=== PATIENT | male | born 1985 | race Caucasian/White ===

== ENCOUNTER 2016-11-07 12:05 | Emergency (ER) | payer SELFPAY ==
[2016-11-07 12:37] VITALS: BP 128/76
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
--- NOTE | 2016-11-07 13:44 | CR ---
Left shoulder: Three views of the left shoulder were obtained. Comparison: No previous study. Glenohumeral joint and acromioclavicular joint appear unremarkable. No fracture, dislocation or other bony abnormality is seen. Impression: 1. No abnormality is identified on left shoulder exam. Diagnostic code #1
--- NOTE | 2016-11-07 13:44 | CR ---
Chest and right ribs: Frontal view of the chest was obtained as well as 3 views of the right ribs. Comparison: No previous chest x-ray. Heart size and mediastinum are normal. Lungs are clear. No discrete fracture or other right sided rib abnormality is seen. Impression: 1. No discrete right sided rib abnormality is appreciated. Nothing acute is seen on accompanying chest x-ray. Diagnostic code #1
== END 2016-11-07 13:56 | disposition home or self-care (01) ==
LOC: JD.ED 12:05
DX: S49.91XA Unspecified injury of right shoulder and upper arm, initial encounter (principal); E66.9 Obesity, unspecified; Z90.49 Acquired absence of other specified parts of digestive tract; Z88.1 Allergy status to other antibiotic agents; V86.59XA Driver of other special all-terrain or other off-road motor vehicle injured in nontraffic accident, initial encounter
CPT/HCPCS: 71101-26-RT; 71101-RT; 73030-26-LT; 73030-LT; 99283

== ENCOUNTER 2017-12-24 11:42 | Emergency (ER) | payer SELFPAY ==
[2017-12-24 11:52] VITALS: BP 114/63
[2017-12-24] MEDS ORDERED: Lidocaine 1% with EPINEPHrine 1:100,000 20 ML MDV INJECT ONE (12:16)
[2017-12-24] MEDS ORDERED: Doxycycline 100 MG Cap PO ONE (12:17)
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
== END 2017-12-24 13:49 | disposition home or self-care (01) ==
LOC: JD.ED 11:42
DX: S00.03XA Contusion of scalp, initial encounter (principal); L72.3 Sebaceous cyst; F07.81 Postconcussional syndrome; W22.8XXA Striking against or struck by other objects, initial encounter
CPT/HCPCS: 10060; 99283; A9270

== ENCOUNTER 2021-06-03 09:26 | Emergency (ER) | payer SELFPAY ==
[2021-06-03 09:37] VITALS: BP 128/80; PULSE 73
[2021-06-03] MEDS ORDERED: Orphenadrine 100 MG Tab.ER PO STA (10:19)
[2021-06-03] MEDS ORDERED: Ketorolac 60 MG/2 ML SDV IM ONE (10:19)
--- NOTE | 2021-06-03 11:04 | CR ---
Thoracic spine: Lateral and AP views of the thoracic spine were obtained. Comparison: No prior thoracic spine imaging is available. Mild disc space narrowing is scattered throughout the thoracic spine. Mild scattered endplate osteophytes are also noted. Pedicles appear intact. No subluxation or acute fracture is seen. Impression: 1. Disc space narrowing with mild endplate osteophytes are scattered throughout the thoracic spine. Diagnostic code #2
--- NOTE | 2021-06-03 11:04 | CR ---
Cervical spine: Lateral and coned-down lateral views were obtained, AP and odontoid views were also obtained of the cervical spine. Comparison: No prior cervical spine imaging is available. Vertebral body heights and disc spaces are maintained. Prevertebral soft tissues are normal. No fracture or subluxation is seen. Impression: 1. Nothing acute is seen on 3-view cervical spine study. Diagnostic code #1
--- NOTE | 2021-06-03 11:18 | EDM.PDOC ---
ED HPI GENERAL MEDICAL PROBLEM - General Chief Complaint: Back Pain or Injury Stated Complaint: HURT BACK Time Seen by Provider: 06/03/21 09:35 Source of Information: Reports: Patient History Limitations: Reports: No Limitations - History of Present Illness INITIAL COMMENTS - FREE TEXT/NARRATIVE: 36-year-old male presents the emergency department with complaints of gradually worsening right shoulder pain that started approximately 1 week ago. He has no recent injury or trauma to the area. States he has seen his chiropractor twice this week without any relief. He states that he has been taking Tylenol, ibuprofen, using heat and a tens unit. States he is otherwise healthy. He denies any numbness or tingling to his extremities. He denies any shooting pain or radiating pain to his extremities. Right Posterior Shoulder Pain Score (Numeric/FACES): 8 - Related Data Allergies Allergy/AdvReac Type Severity Reaction Status Date / Time amoxicillin Allergy Itching Verified 06/03/21 09:37 Home Meds: Home Meds Omeprazole 20 mg PO DAILY 06/03/21 [History] Orphenadrine [Norflex] 100 mg PO BID PRN #10 tab 06/03/21 [Rx] Past Medical History - Past Health History Medical/Surgical History: Denies Medical/Surgical History Cardiovascular History: Reports: None Respiratory History: Reports: None Gastrointestinal History: Reports: GERD Genitourinary History: Reports: Renal Calculus Musculoskeletal History: Reports: Arthritis Neurological History: Reports: None Endocrine/Metabolic History: Reports: Obesity/BMI 30+ - Past Surgical History GI Surgical History: Reports: Appendectomy Musculoskeletal Surgical History: Reports: Other (See Below) Other Musculoskeletal Surgeries/Procedures:: hand surgery on rt hand - History Comment History Comment: ibuprofen prn Social & Family History - Family History Family Medical History: No Pertinent Family History - Tobacco Use Tobacco Use Status *Q: Never Tobacco User Second Hand Smoke Exposure: No - Caffeine Use Caffeine Use: Reports: Coffee - Recreational Drug Use Recreational Drug Use: No ED ROS GENERAL - Review of Systems Review Of Systems: Comprehensive ROS is negative, except as noted in HPI. ED EXAM, UPPER BACK/NECK PAIN - Physical Exam Exam: See Below Exam Limited By: No Limitations General Appearance: Alert, WD/WN, Mild Distress Ears Exam: Normal External Exam, Hearing Grossly Normal Nose Exam: Normal Inspection Throat/Mouth Exam: Normal Inspection, Normal Lips, Normal Voice, No Airway Compromise Head Exam: Atraumatic, Normocephalic Neck Exam: Non-Tender, Full Range of Motion, Normal Alignment, Normal Inspection, Paraspinous Muscle Tender (Right lower cervical area) Cardiovascular/Respiratory: Regular Rate, Rhythm, Normal Peripheral Pulses, No Respiratory Distress GI/Abdominal: Normal Bowel Sounds, Soft, No Distention (Male) Exam: Deferred Rectal (Males) Exam: Deferred Back Exam: Normal Inspection, Paraspinal Tenderness (Right lower cervical and upper thoracic area as well as right scapular area) Extremities: Normal Inspection, Normal Range of Motion, Non-Tender, No Pedal Edema, Normal Capillary Refill Neurologic: No Motor/Sensory Deficits, Alert, Normal Mood/Affect, Oriented x 3 Psychiatric: Normal Affect, Normal Mood Skin Exam: Normal Color, Warm/Dry Lymphatic: No Adenopathy Course - Vital Signs Text/Narrative:: Physical exam reveals overweight 36-year-old male. Patient does appear to be in some distress due to discomfort. Does need assistance sitting up at the bedside. Do not appreciate any spinal tenderness however he has significant amount of paraspinal tenderness noted on the right side in the lower cervical and upper thoracic spinal area as well as into the scapula. Increased pain noted when raising her right arm laterally as well as across his body. Also notes pain when turning his head from side to side. Will obtain an x-ray of the cervical and thoracic spine as well as medicate the patient with a Norflex and Toradol IM. Last Recorded V/S: Last Vital Signs Temp 97.6 F 06/03/21 09:32 Pulse 73 06/03/21 09:32 Resp 16 06/03/21 09:32 BP 128/80 06/03/21 09:32 Pulse Ox 96 06/03/21 09:32 - Orders/Labs/Meds Meds: Medications Discontinued Medications Generic Name Dose Route Start Last Admin Trade Name Freq PRN Reason Stop Dose Admin Ketorolac Tromethamine 60 mg 06/03/21 10:19 06/03/21 10:26 Ketorolac 60 Mg/2 Ml Sdv IM 06/03/21 10:20 60 mg ONETIME ONE Administration Orphenadrine Citrate 100 mg 06/03/21 10:19 06/03/21 10:26 Orphenadrine 100 Mg Tab.Er PO 06/03/21 10:20 100 mg NOW STA Administration - Re-Assessments/Exams Free Text/Narrative Re-Assessment/Exam: 06/03/21 11:17 Radiologist impression cervical spine: Vertebral body heights and disc spaces are maintained. Prevertebral soft tissues are normal. No fracture or subluxation is seen. Impression: 1. Nothing acute is seen on 3 view cervical spine study. Radiologist impression lateral and AP views of the thoracic spine: Mild to space narrowing is scattered throughout the thoracic spine. Mild scattered endplate osteophytes are noted. Pedicles appear intact. No subluxation or acute fracture is seen. Impression: 1. To space narrowing with mild endplate osteophytes are scattered throughout the thoracic spine. 06/03/21 11:28 Patient states he did get some relief from the Toradol and Norflex. He will be discharged home with a prescription for Norflex. Departure - Departure Time of Disposition: 11:28 Disposition: Home, Self-Care 01 Condition: Good Clinical Impression: Shoulder pain, right Qualifiers: Chronicity: acute Qualified Code(s): M25.511 - Pain in right shoulder - Discharge Information Prescriptions: Orphenadrine [Norflex] 100 mg PO BID PRN #10 tab PRN Reason: Spasms Referrals: PCP,None [Primary Care Provider] - Forms: ED Department Discharge Additional Instructions: You were seen in the emergency department today with complaints of pain noted to your upper back and right shoulder area. X-rays were obtained and they were unremarkable. Cause of your pain is likely due to muscular tension. You did receive a muscle relaxer and a IM anti-inflammatory medication while in the emergency department and this did seem to help a bit. A prescription for the muscle relaxer has been sent to [facility]. You may take this medication twice daily. Be sure to wait 8 hours in between doses. Keep in mind that this medication does have a sedative effect so you cannot drive, drink alcohol or operate heavy machinery while taking the medication. Also recommend taking Tylenol 650 mg alternating with ibuprofen 600 mg every 4 hours for the next couple of days. Recommend using ice 30 minutes at a time every 3 hours while awake for the next couple of days and then you may use heat. Also recommend that you get a massage and then visit your chiropractor as this will likely be more effective. Should your condition worsen or change, do not hesitate returning to the emergency department. Sepsis Event Note (ED) - Evaluation Sepsis Screening Result: No Definite Risk - Focused Exam Vital Signs: Vital Signs Temp Pulse Resp BP Pulse Ox 06/03/21 09:32 97.6 F 73 16 128/80 96
== END 2021-06-03 11:40 | disposition home or self-care (01) ==
LOC: JD.ED 09:26
DX: M25.511 Pain in right shoulder (principal); K21.9 Gastro-esophageal reflux disease without esophagitis; E66.9 Obesity, unspecified; Z68.30 Body mass index [BMI] 30.0-30.9, adult; Z88.0 Allergy status to penicillin; Z79.899 Other long term (current) drug therapy
CPT/HCPCS: 72040; 72072; 96372; 99283; A9270; J1885

== ENCOUNTER 2021-09-17 21:27 | Emergency (ER) | payer BC ==
[2021-09-17 21:35] VITALS: BP 111/65; PULSE 77
[2021-09-17] MEDS ORDERED: Ondansetron 4 MG Tab.DIS PO ONE (22:04)
[2021-09-17] MEDS ORDERED: Ketorolac 15 MG/ML SDV IM ONE (22:04)
[2021-09-17] MEDS ORDERED: Lidocaine 1% 20 ML MDV INJECT ONE (22:35)
[2021-09-17] MEDS ORDERED: Diphtheria,Pertussis(Acell),Tetanus Vaccine 0.5 ML Syringe IM ONE (22:36)
[2021-09-17] MEDS ORDERED: Lidocaine 1% 30 ML SDV ONE (22:49)
== END 2021-09-18 00:16 | disposition home or self-care (01) ==
LOC: JD.ED 21:27
DX: S51.011A Laceration without foreign body of right elbow, initial encounter (principal); S93.601A Unspecified sprain of right foot, initial encounter; S80.811A Abrasion, right lower leg, initial encounter; E66.9 Obesity, unspecified; Z68.30 Body mass index [BMI] 30.0-30.9, adult; Z88.0 Allergy status to penicillin; Z23 Encounter for immunization; V18.9XXA Unspecified pedal cyclist injured in noncollision transport accident in traffic accident, initial encounter
CPT/HCPCS: 73080; 73630; 90471; 90715; 96372; 99283; A9270; J1885